=== PATIENT | female | born 1965 ===

== ENCOUNTER 2018-07-07 15:11 | Emergency (ER) | payer BC, OTHER ==
--- NOTE | 2018-07-07 17:56 | UC ---
Skin Complaint HPI - HPI Summary HPI Summary: 52-year-old woman comes in with a chief complaint of a rash. Started about 10 days ago. It is red and feels like her some swelling underneath the skin and it 's tender to palpation. Also been having some joint aches and had some fevers. No known cause for the rash fevers. [id number] medications to help some with the symptoms. No shortness of breath no chest congestion. - History of Current Complaint Chief Complaint: UCAllergicReaction Time Seen by Provider: 07/07/18 16:42 Stated Complaint: POSSIBLE ALLERGIC REACTION Hx Last Menstrual Period: 06/22/18 Pain Intensity: 6 - Allergy/Home Medications Allergies/Adverse Reactions: Allergies Allergy/AdvReac Type Severity Reaction Status Date / Time acetaminophen Allergy Unknown Verified 07/07/18 15:37 [From Tylenol-Codeine #3] Reaction Details codeine Allergy Unknown Verified 07/07/18 15:37 [From Tylenol-Codeine #3] Reaction Details prednisone Allergy Unknown Verified 07/07/18 15:37 Reaction Details Home Medications: Home Medications NK [No Home Medications Reported] 07/07/18 [History Confirmed 07/07/18] PMH/Surg Hx/FS Hx/Imm Hx Previously Healthy: Yes - Surgical History Surgical History: None - Family History Known Family History: Positive: Non-Contributory - Social History Alcohol Use: None Substance Use Type: None Smoking Status (MU): Never Smoked Tobacco Review of Systems All Other Systems Reviewed And Are Negative: Yes Constitutional: Positive: Fever Skin: Positive: Rash Eyes: Positive: Negative ENT: Positive: Negative Respiratory: Positive: Negative Cardiovascular: Positive: Negative Gastrointestinal: Positive: Negative Motor: Positive: Negative Neurovascular: Positive: Negative Musculoskeletal: Positive: Negative Neurological: Positive: Negative Psychological: Positive: Negative Is Patient Immunocompromised?: No Physical Exam Triage Information Reviewed: Yes Appearance: Well-Appearing, No Pain Distress, Well-Nourished Vital Signs: Initial Vital Signs Temp 99.9 F 07/07/18 15:29 Pulse 106 07/07/18 15:29 Resp 16 07/07/18 15:29 BP 160/93 07/07/18 15:29 Pulse Ox 100 07/07/18 15:29 Vital Signs Reviewed: Yes Eye Exam: Normal Eyes: Positive: Conjunctiva Clear ENT: Positive: Pharynx normal Neck: Positive: Supple Respiratory: Positive: Lungs clear, Normal breath sounds, No respiratory distress Cardiovascular: Positive: RRR Musculoskeletal: Positive: Strength Intact, ROM Intact Neurological Exam: Normal Neurological: Positive: Alert, Muscle Tone Normal Psychological Exam: Normal Psychological: Positive: Age Appropriate Behavior Skin: Positive: Other - Patient has multiple sites of an erythematous rash that' s slightly raised it's tender to palpation it blanches and is firm feeling like nodules on the anterior legs the forearms and the hands. Course/Dx - Course Course Of Treatment: Patient Name: NEGRO GUERRA Medical Record#: [id number] Ordering Physician: Tian Calix MD Acct.#: [id number] : 1965 Age: 52 Sex: F Location: [facility] Exam Date: 07/07/181707 ADM Status: [facility] ER Order Information: CHEST PA LAT 2 S Accession Number: [id number] CPT: 15474 HISTORY: erythema nodosum COMPARISONS: None relevant available at the time of dictation. VIEWS: 4: Frontal dual-energy and lateral views of the chest. FINDINGS: CARDIOMEDIASTINAL SILHOUETTE: The cardiomediastinal silhouette is normal. JAIME: The jaime are normal. PLEURA: The costophrenic angles are sharp. No pleural abnormalities are noted. LUNG PARENCHYMA: The lungs are clear. ABDOMEN: The upper abdomen is clear. There is no subphrenic gas. BONES AND SOFT TISSUES: No bone or soft tissue abnormalities are noted. OTHER: None. IMPRESSION: NO ACTIVE CARDIOPULMONARY DISEASE. <Electronically signed by Kuldeep Mora MD in OV> 07/07/18 1940 I discussed the results of the chest x-ray with the patient. Rapid strep was negative. On examination patient has erythema nodosum. The plan is to treat with ibuprofen 600 mg by mouth every 6 hours. Patient will either be following up with the primary care doctor at [facility] or the [facility]. I ordered a CRP CBC area so titer. Patient may need a tuberculosis test. If she worsens she should get checked sooner in the emergency department. - Diagnoses Provider Diagnosis: Erythema nodosum Discharge - Sign-Out/Discharge Documenting (check all that apply): Patient Departure All imaging exams completed and their final reports reviewed: Yes - Discharge Plan Condition: Stable Disposition: HOME Patient Education Materials: Acute Rash (ED) Forms: *Work Release Referrals: [facility] [Outside] [facility] [Provider Group] Additional Instructions: FOLLOW UP WITH YOUR PRIMARY CARE DOCTOR OR [facility] FOR YOUR ERYTHEMA NODOSUM. TAKE IBUPROFEN 600MG EVERY 6 HOURS. GET RECHECKED SOONER IF YOUR CONDITION WORSENS OR ANY QUESTIONS OR CONCERNS. - Billing Disposition and Condition Condition: STABLE Disposition: Home
[2018-07-08 11:24] LABS: Hematocrit 37 % (35-47); Hemoglobin 12.1 g/dL (12.0-16.0); Mean Corpuscular HGB Conc 32 g/dL (31-36); Mean Corpuscular Hemoglobin 27 pg (27-31); Mean Corpuscular Volume 83 fL (80-97); Mean Platelet Volume 7.4 fL (7.4-10.4); Platelet Count 500 10^3/uL (150-450); Red Cell Distribution Width 14 % (10.5-15)
[2018-07-08 12:19] LABS: ABS Eosinophils 0.1 10^3/ul (0-0.6); ABS Lymphocytes 0.7 10^3/ul (1.0-4.8); ABS Monocytes 0.8 10^3/ul (0-0.8); ABS Neutrophils 11.3 10^3/ul (1.5-7.7); Eosinophil % 0.9 %; Lymphocyte % 5.7 %
[2018-07-08 15:52] LABS: Albumin 3.9 g/dL (3.2-5.2); Calcium 9.4 mg/dL (8.6-10.3); Potassium 4.6 mmol/L (3.5-5.0); Total Bilirubin 0.3 mg/dL (0.2-1.0)
[2018-07-08 15:58] LABS: Albumin/Globulin Ratio 1.2 (1-3); BUN/Creatinine Ratio 14.5 (8-20); C Reactive Protein 109.14 mg/L (<8.01); EGFR African American 97.1 (>60); EGFR Non-African American 80.2 (>60); Globulin 3.2 g/dL (2-4); Total Protein 7.1 g/dL (6.4-8.9)
--- NOTE | 2018-07-08 21:25 | UC ---
- Progress Note Progress Note: 07/08/2018 WBC: 13 High, neutrophils:11.3 High Platelet: 500 high CRP:109.0 AsoTiter: negative Please call back patient and notified her there is an infection due to the WBC adn elevated CPR. If patient still febrile and symptoms are not improving , she should go to the ER for further management. Otherwise, f/u w/ her PCP tomorrow for further work up on her rash. Thank you Miri YUSUF Course/Dx - Diagnoses Provider Diagnoses: Erythema nodosum Discharge - Sign-Out/Discharge Documenting (check all that apply): Post-Discharge Follow Up All imaging exams completed and their final reports reviewed: Yes - Discharge Plan Condition: Stable Disposition: HOME Patient Education Materials: Acute Rash (ED) Forms: *Work Release Referrals: [facility] [Provider Group] [facility] [Outside] Additional Instructions: FOLLOW UP WITH YOUR PRIMARY CARE DOCTOR OR [facility] FOR YOUR ERYTHEMA NODOSUM. TAKE IBUPROFEN 600MG EVERY 6 HOURS. GET RECHECKED SOONER IF YOUR CONDITION WORSENS OR ANY QUESTIONS OR CONCERNS. - Billing Disposition and Condition Condition: STABLE Disposition: Home
== END 2018-07-07 18:28 | disposition home or self-care (01) ==
LOC: UCEAST 15:11
DX: L52 Erythema nodosum (principal); Z88.5 Allergy status to narcotic agent; Z88.8 Allergy status to other drugs, medicaments and biological substances
CPT/HCPCS: 36415; 71046; 80053; 85025; 86060; 86140; 87651; 99201; G0463